=== PATIENT | female | born 1980 | race Hispanic/Latino ===

== ENCOUNTER 2017-05-06 21:47 | Emergency (ER) | payer MEDICAID, OTHER | END 2017-05-07 00:08 | disposition home or self-care (01) | LOC: EDH 21:47 | DX: J01.10 Acute frontal sinusitis, unspecified (principal) ==

== ENCOUNTER 2023-05-29 18:20 | Emergency (ER) | payer MEDICAID ==
[~2023-05-29] VITALS: Ht 160 cm; Wt 101.6 kg
[2023-05-29 19:42] LABS: SARS-CoV-2, RNA, NAAT NEGATIVE SARS CoV-2 (NEGATIVE)
[2023-05-29 19:48] LABS: INFLUENZA TYPE A Negative For Type A (NEGATIVE); INFLUENZA TYPE B Negative For Type B (NEGATIVE)
[2023-05-29] MEDS ORDERED: 0.9%NACL 1000ML 1,000 ML IV SCH (20:00)
[2023-05-29] MEDS ORDERED: DiphenhydrAMINE HCL 50 MG/ML VIAL IV ONE (20:00)
[2023-05-29] MEDS ORDERED: KETOROLAC 30MG VIAL (30MG/ML) IVP ONE (20:00)
[2023-05-29] MEDS ORDERED: ONDANSETRON 4MG INJ IVP ONE (20:00)
[2023-05-29] MEDS ORDERED: FAMOTIDINE 20MG VIAL IV ONE (20:00)
[2023-05-29] MEDS ORDERED: ASPI1TAB7 PO (20:28)
[2023-05-29 20:30] VITALS: BP 133/70; PULSE 84; RESP 17; O2SAT 99
== END 2023-05-29 20:52 | disposition home or self-care (01) ==
LOC: EDH 18:20
DX: G43.909 Migraine, unspecified, not intractable, without status migrainosus (principal); Z20.822 Contact with and (suspected) exposure to COVID-19
CPT/HCPCS: 99284; 96374; 96375; 87635; 87804 ×2; J1200; J7030; J2405; J1885; S0028; J3490